=== PATIENT | male | born 1945 | race Caucasian/White ===

== ENCOUNTER 2017-09-23 08:57 | Outpatient (CLI) | payer MEDICARE ==
[~2017-09-23] VITALS: Ht 175.3 cm; Wt 79.1 kg
[2017-09-23] MEDS ORDERED: TOPROL XL100 MG PO (10:11)
[2017-09-23] MEDS ORDERED: GLUCOPHAGE500 MG PO (10:11)
[2017-09-23] MEDS ORDERED: LIPITOR40 MG PO (10:12)
[2017-09-23] MEDS ORDERED: CEFUROXIME (10:12)
[2017-09-23] MEDS ORDERED: TRIUMEQ TAB (10:12)
[2017-09-23] MEDS ORDERED: LEVOTHYROXINE50 MCG PO (10:13)
[2017-09-23] MEDS ORDERED: PROZAC20 MG PO (10:13)
[2017-09-23] MEDS ORDERED: AMITRIPTYLINE100 MG PO (10:13)
[2017-09-23] MEDS ORDERED: ATIVAN1 MG PO (10:14)
[2017-09-23] MEDS ORDERED: ALPHAGAN 0.2%5 ML EACH EYE (10:15)
[2017-09-23] MEDS ORDERED: COSOPT EYE DROPS5 ML LEFT EYE (10:15)
[2017-09-23] MEDS ORDERED: COZAAR50 MG PO (10:15)
[2017-09-23] MEDS ORDERED: VALIUM5 MG PO (10:16)
[2017-09-23 10:40] VITALS: Ht 175.3 cm; Wt 79.1 kg
[2017-09-23 11:01] LABS: BASOPHILS 0 % (0-2); EOSINOPHILS 1.4 % (0-7); HEMATOCRIT 37.9 % (42.0-54.0); HEMOGLOBIN 13.7 g/dL (13.5-17.5); IMMATURE GRANULOCYTES 0.4 % (0-5); MCH 34.9 pg (26.0-34.0); MCHC 36.1 g/dL (31.0-37.0); MCV 96.7 fL (80.0-100.0); MONOCYTES 10.8 % (2-11); NEUTROPHILS 52.4 % (40-80); PLATELET COUNT 135 10x3/uL (130-400); RBC 3.92 10x6/uL (4.20-6.10); RDW 12.7 % (11.5-14.5); WBC 4.9 10x3/uL (4.8-10.8)
[2017-09-23 11:08] LABS: APTT 27.7 SECONDS (22.8-39.4); INR 0.98 (0.85-1.17); PROTIME 12.6 SECONDS (11.6-15.0)
[2017-09-23 11:11] LABS: CALC OSMOLALITY 280 mosm/kg (275-300); CARBON DIOXIDE 27.2 mmol/L (21.0-32.0); CHLORIDE - SERUM 104 mmol/L (98-107); CREATININE - SERUM 0.8 mg/dL (0.6-1.3); GLUCOSE 130 mg/dL (74-106); POTASSIUM - SERUM 4.1 mmol/L (3.5-5.1); SODIUM 139 mmol/L (136-145); UREA NITROGEN 15 mg/dL (7-18); eGFR NON AFRICAN AMERICAN > 90 mL/min (90-120)
== END 2017-09-23 13:35 | disposition home or self-care (01) ==
LOC: D.OPS 08:57 → D.CT 08:57 → D.OPS 13:35
PROVIDERS: Radiology Diagnostic Radiology
DX: R59.0 Localized enlarged lymph nodes (principal); Z01.812 Encounter for preprocedural laboratory examination

== ENCOUNTER 2017-12-20 16:31 | Emergency (ER) | payer MEDICARE, MEDICAID ==
[2017-09-23 10:40] VITALS: BMI 25.7
[~2017-12-20 16:31] MED LIST: ALPHAGAN 0.2%5 ML EACH EYE; AMITRIPTYLINE100 MG PO; ATIVAN1 MG PO; CEFUROXIME; COSOPT EYE DROPS5 ML LEFT EYE; COZAAR50 MG PO; GLUCOPHAGE500 MG PO; LEVOTHYROXINE50 MCG PO; LIPITOR40 MG PO; PROZAC20 MG PO; TOPROL XL100 MG PO; TRIUMEQ TAB; VALIUM5 MG PO
[2017-12-20 17:23] LABS: BASOPHILS 0.1 % (0-2); EOSINOPHILS 0.4 % (0-7); HEMATOCRIT 31.2 % (42.0-54.0); HEMOGLOBIN 10.7 g/dL (13.5-17.5); IMMATURE GRANULOCYTES 7.1 % (0-5); LYMPHOCYTES 8.5 % (15-50); MCHC 34.3 g/dL (31.0-37.0); MCV 96.3 fL (80.0-100.0); MEAN PLATELET VOLUME 9.2 fL (7.4-10.4); MONOCYTES 12.2 % (2-11); NEUTROPHILS 71.7 % (40-80); PLATELET COUNT 128 10x3/uL (130-400); RBC 3.24 10x6/uL (4.20-6.10); RDW 14.1 % (11.5-14.5); WBC 10.2 10x3/uL (4.8-10.8)
[2017-12-20 17:44] LABS: ALBUMIN 3.2 g/dL (3.4-5.0); ALKALINE PHOSPHATASE 106 U/L (46-116); ALT (SGPT) 45 U/L (10-68); CALC OSMOLALITY 278 mosm/kg (275-300); CARBON DIOXIDE 20.3 mmol/L (21.0-32.0); CHLORIDE - SERUM 104 mmol/L (98-107); GLUCOSE 132 mg/dL (74-106); POTASSIUM - SERUM 3.9 mmol/L (3.5-5.1); PROTEIN - SERUM 6.6 g/dL (6.4-8.2); SODIUM 139 mmol/L (136-145); UREA NITROGEN 11 mg/dL (7-18); eGFR NON AFRICAN AMERICAN 78 mL/min (90-120)
== END 2017-12-20 19:30 | disposition home or self-care (01) ==
LOC: D.ER 16:31
PROVIDERS: Emergency Medicine
DX: F10.129 Alcohol abuse with intoxication, unspecified (principal); F10.10 Alcohol abuse, uncomplicated; B20 Human immunodeficiency virus [HIV] disease; E11.9 Type 2 diabetes mellitus without complications; F17.200 Nicotine dependence, unspecified, uncomplicated; C85.90 Non-Hodgkin lymphoma, unspecified, unspecified site